=== PATIENT | female | born 1945 | race Caucasian/White ===

== ENCOUNTER 2017-01-29 10:41 | Emergency (ER) | payer MEDICARE, OTHER ==
--- NOTE | 2017-01-29 11:05 | ER Document Report ---
ED Medical Screen (RME) - General Chief Complaint: Flank Pain Stated Complaint: BACK PAIN Notes: This 71-year-old female patient comes in from complaining of back pain started Thursday. She reported the pain seemed to start in the epigastrium and go around both sides and settle into her back. The pain is made worse laying flat on her back, coughing, trying to get up from sitting position. She has COPD, CHF, coronary artery disease. Brief exam shows palpation tenderness to the left paraspinal upper lumbar region. Palpating this area reproduces and worsens the chief complaint. I have greeted and performed a rapid initial assessment of this patient. A comprehensive ED assessment and evaluation of the patient, analysis of test results and completion of the medical decision making process will be conducted by additional ED providers. TRAVEL OUTSIDE OF THE [place] IN LAST 30 DAYS: No - Related Data Allergies/Adverse Reactions: Sulfa (Sulfonamide Antibiotics) Allergy (Verified 01/29/17 10:58) facial swelling and itching Past Medical History Renal/ Medical History: Denies: Hx Peritoneal Dialysis Physical Exam - Vital signs Vitals: Temp Pulse Resp BP Pulse Ox 97.4 F 85 22 H 100/47 L 92 01/29/17 10:50 01/29/17 10:50 01/29/17 10:50 01/29/17 10:50 01/29/17 10:50 Course - Vital Signs Vital signs: Temp Pulse Resp BP Pulse Ox 97.4 F 85 22 H 100/47 L 92 01/29/17 10:50 01/29/17 10:50 01/29/17 10:50 01/29/17 10:50 01/29/17 10:50
[2017-01-29 11:30] LABS: ABSOLUTE EOSINOPHILS # (AUTO) 0.3 10^3/uL (0.0-0.6); ABSOLUTE LYMPHOCYTES (AUTO) 0.9 10^3/uL (0.5-4.7); ABSOLUTE MONOCYTES (AUTO) 0.7 10^3/uL (0.1-1.4); ABSOLUTE NEUT (AUTO) 8.1 10^3/uL (1.7-8.2); BASOPHILS % (AUTO) 0.2 % (0-2); HEMOGLOBIN 11.1 g/dL (12.0-15.5); HGB HCT DIFFERENCE 1.3; LYMPHOCYTES % (AUTO) 8.7 % (13-45); MEAN CORPUSCULAR HEMOGLOBIN 31.8 pg (27.0-33.4); MEAN CORPUSCULAR HGB CONC 34.7 g/dL (32.0-36.0); MEAN CORPUSCULAR VOLUME 92 fl (80-97); MONOCYTES % (AUTO) 7.4 % (3-13); RED BLOOD COUNT 3.49 10^6/uL (3.72-5.28); RED CELL DISTRIBUTION WIDTH 13.4 % (11.5-14.0); SEGMENTED NEUTROPHILS % (AUTO) 80.7 % (42-78)
[2017-01-29 11:43] LABS: APPEARANCE,URINE CLEAR; BILIRUBIN,URINE NEGATIVE (NEGATIVE); GLUCOSE, URINE NEGATIVE (NEGATIVE); KETONES,URINE NEGATIVE (NEGATIVE); URINE SPECIFIC GRAVITY 1.015
[2017-01-29 11:44] LABS: LEUKOCYTE ESTERASE,URINE TRACE (NEGATIVE); NITRITE,URINE NEGATIVE (NEGATIVE); PROTEIN,URINE NEGATIVE (NEGATIVE); UROBILINOGEN,URINE NEGATIVE mg/dL (<2.0)
[2017-01-29 11:45] LABS: BACTERIA,URINE 3+ /HPF; RBC,URINE 0-1 /HPF
[2017-01-29 11:51] LABS: ALANINE AMINOTRANSFERASE 27 U/L (9-52); ALBUMIN 4.1 g/dL (3.5-5.0); ALKALINE PHOSPHATASE 80 U/L (38-126); ANION GAP 15 (5-19); ASPARTATE AMINO TRANSFERASE 23 U/L (14-36); BILIRUBIN,DIRECT 0.2 mg/dL (0.0-0.4); BILIRUBIN,TOTAL 0.7 mg/dL (0.2-1.3); BLOOD UREA NITROGEN 19 mg/dL (7-20); CALCIUM 9.7 mg/dL (8.4-10.2); CARBON DIOXIDE 28 mmol/L (22-30); CHLORIDE 93 mmol/L (98-107); CREATINE KINASE 75 U/L (30-135); CREATININE RESULT 0.83 mg/dL (0.52-1.25); GLUCOSE 114 mg/dL (75-110); SODIUM 135.5 mmol/L (137-145); TOTAL PROTEIN 7.6 g/dL (6.3-8.2)
[2017-01-29 12:01] LABS: CREATINE KINASE MB 0.95 ng/mL (<4.55)
[2017-01-29 12:03] LABS: TROPONIN I < 0.012 ng/mL
--- NOTE | 2017-01-29 12:35 | ER Document Report ---
ED General - General Chief Complaint: Flank Pain Stated Complaint: BACK PAIN Mode of Arrival: Ambulatory Information source: Patient Notes: 71-year-old female presents with complaints of back pain that started on Thursday. Patient notes the pain started when she woke. Denies any urinary complaints, denies any shortness breath of to breathing. Patient notes it hurts when she moves TRAVEL OUTSIDE OF THE [place] IN LAST 30 DAYS: No - HPI Onset: Other - 5 day duration Onset/Duration: Persistent Quality of pain: Achy Severity: Mild Pain Level: 1 Associated symptoms: Body/muscle aches Exacerbated by: Movement Relieved by: Denies Similar symptoms previously: Yes Recently seen / treated by doctor: Yes - Related Data Allergies/Adverse Reactions: Sulfa (Sulfonamide Antibiotics) Allergy (Verified 01/29/17 10:58) facial swelling and itching Past Medical History - Social History Smoking Status: Never Smoker Cigarette use (# per day): No Chew tobacco use (# tins/day): No Smoking Education Provided: No Drug Abuse: None Family History: Reviewed & Not Pertinent Patient has suicidal ideation: No Patient has homicidal ideation: No Renal/ Medical History: Denies: Hx Peritoneal Dialysis Review of Systems - Review of Systems Notes: REVIEW OF SYSTEMS: CONSTITUTIONAL : Denies fever, chills, or sweats. Denies recent illness. EENT: Denies eye, ear, throat, or mouth pain or symptoms. Denies nasal or sinus congestion or discharge. Denies throat, tongue, or mouth swelling or difficulty swallowing. CARDIOVASCULAR: Denies chest pain. Denies palpitations or racing or irregular heart beat. Denies ankle edema. RESPIRATORY: chronicly on 4 L GASTROINTESTINAL: Denies abdominal pain or distention. Denies nausea, vomiting , or diarrhea. Denies blood in vomitus, stools, or per rectum. Denies black, tarry stools. Denies constipation. GENITOURINARY: Denies difficulty urinating, painful urination, burning, frequency, blood in urine, or discharge. FEMALE GENITOURINARY: Denies vaginal bleeding, heavy or abnormal periods, irregular periods. Denies vaginal discharge or odor. MUSCULOSKELETAL: Tenderness in the thoracic region SKIN: Denies rash, lesions or sores. HEMATOLOGIC : Denies easy bruising or bleeding. LYMPHATIC: Denies swollen, enlarged glands. NEUROLOGICAL: Denies confusion or altered mental status. Denies passing out or loss of consciousness. Denies dizziness or lightheadedness. Denies headache. Denies weakness or paralysis or loss of use of either side. Denies problems with gait or speech. Denies sensory loss, numbness, or tingling. Denies seizures. PSYCHIATRIC: Denies anxiety or stress. Denies depression, suicidal ideation, or homicidal ideation. ALL OTHER SYSTEMS REVIEWED AND NEGATIVE. Dictation was performed using [employer] voice recognition software PHYSICAL EXAMINATION: GENERAL: Well-appearing, well-nourished and in no acute distress. HEAD: Atraumatic, normocephalic. EYES: Pupils equal round and reactive to light, extraocular movements intact, conjunctiva are normal. ENT: Nares patent, oropharynx clear without exudates. Moist mucous membranes. NECK: Normal range of motion, supple without lymphadenopathy LUNGS: chronic rhonchi HEART: Regular rate and rhythm without murmurs ABDOMEN: Soft, nontender, nondistended abdomen. No guarding, no rebound. No masses appreciated. Female : deferred Musculoskeletal: Normal range of motion, no pitting or edema. No cyanosis. Tenderness on palpation of that T7 NEUROLOGICAL: Cranial nerves grossly intact. Normal speech, normal gait. Normal sensory, motor exams PSYCH: Normal mood, normal affect. SKIN: Warm, Dry, normal turgor, no rashes or lesions noted. Physical Exam - Vital signs Vitals: Temp Pulse Resp BP Pulse Ox 97.4 F 85 22 H 100/47 L 92 01/29/17 10:50 01/29/17 10:50 01/29/17 10:50 01/29/17 10:50 01/29/17 10:50 Course - Re-evaluation Re-evalutation: 01/29/17 12:35 Patient has pinpoint tenderness of her spinous process, reproducing the same exact pain, denies within life-threatening issues 01/29/17 13:13 ct noted no acute abnormality will dc home with close follow up After performing a Medical Screening Examination, I estimate there is LOW risk for EXPANDING OR RUPTURED ABDOMINAL AORTIC ANEURYSM, CAUDA EQUINA SYNDROME, EPIDURAL MASS LESION, or HERNIATED DISK CAUSING SEVERE SPINAL STENOSIS, thus I consider the discharge disposition reasonable. I have reevaluated this patient multiple times and no significant life threatening changes are noted. The patient and I have discussed the diagnosis and risks, and we agree with discharging home and close follow-up. We also discussed returning to the Emergency Department immediately if new or worsening symptoms occur with the understanding that symptoms and presentations can change. We have discussed the symptoms which are most concerning (e.g., saddle anesthesia, urinary or bowel incontinence or retention, changing or worsening pain) that necessitate immediate return. 01/29/17 13:15 - Vital Signs Vital signs: Temp Pulse Resp BP Pulse Ox 97.5 F 89 18 104/54 L 95 01/29/17 12:58 01/29/17 12:58 01/29/17 12:58 01/29/17 12:58 01/29/17 12:58 - Laboratory Result Diagrams: 01/29/17 11:10 01/29/17 11:10 Laboratory results interpreted by me: 01/29/17 01/29/17 01/29/17 11:10 11:10 11:10 RBC 3.49 L Hgb 11.1 L Hct 32.0 L Seg Neutrophils % 80.7 H Lymphocytes % 8.7 L Sodium 135.5 L Chloride 93 L Glucose 114 H Ur Leukocyte Esterase TRACE H - Diagnostic Test Radiology reviewed: Image reviewed, Reports reviewed Discharge - Discharge Clinical Impression: Thoracic back pain Qualifiers: Chronicity: acute Back pain laterality: midline Qualified Code(s): M54.6 - Pain in thoracic spine Condition: Stable Disposition: HOME, SELF-CARE Instructions: Low Back Pain ([facility]) Additional Instructions: Follow up with your physician tomorrow for further care or return to the ED IMMEDIATELY if symptoms worsen or new concerns occur. If you cannot afford to follow up with your primary care physician a list of low cost clinics have been provided at the end of your discharge papers as well. Prescriptions: Hydrocodone/Acetaminophen [[place] 5-325 mg Tablet] 1 tab PO Q4 #20 tablet Prednisone 60 mg PO DAILY 5 Days
[2017-01-29] MEDS ORDERED: HYDROCODONE/ACETAMINOPHEN 5-325 MG TABLET PO ONE (12:38)
[2017-01-29 12:59] VITALS: BP 104/54
--- NOTE | 2017-01-29 20:05 | EKG REPORT ---
SEVERITY:- OTHERWISE NORMAL ECG - SINUS RHYTHM ABERRANT COMPLEX, POSSIBLY SUPRAVENTRICULAR : Confirmed by: Helen Herman MD 29-Jan-2017 20:04:38
== END 2017-01-29 13:22 | disposition home or self-care (01) ==
LOC: EDBD → ER 10:41
DX: K59.00 Constipation, unspecified (principal); M54.6 Pain in thoracic spine; R09.89 Other specified symptoms and signs involving the circulatory and respiratory systems; Z88.2 Allergy status to sulfonamides; Z99.81 Dependence on supplemental oxygen
CPT/HCPCS: 93005; 99285; 36415; 82553; 82550; 85025; 80053; 81001; 84484; 71020; 74176; 93010; A9270